=== PATIENT | female | born 1990 | race Caucasian/White ===

== ENCOUNTER 2018-11-26 17:37 | Emergency (ER) | payer OTHER ==
[~2018-11-26] VITALS: Ht 149.9 cm; Wt 81.6 kg
[2018-11-26] MEDS ORDERED: PEPCID20 MG (17:51)
== END 2018-11-27 00:19 | disposition home or self-care (01) ==
LOC: ER 17:37
DX: K29.70 Gastritis, unspecified, without bleeding (principal)